=== PATIENT | female | born 2000 | race Two or more races ===

== ENCOUNTER 2024-05-16 09:58 | Emergency (ER) | payer OTHER ==
[~2024-05-16] VITALS: Ht 175.3 cm; Wt 65.8 kg
[2024-05-16] MEDS ORDERED: IBUPROFEN 800 MG TABLET ONE (10:57)
[2024-05-16] MEDS: IBUPROFEN 800 MG TABLET PO ONE (10:59)
[2024-05-16] MEDS ORDERED: IBUP-1957 PO (11:46)
[2024-05-16] MEDS ORDERED: HYDR-3972 PO (11:46)
[2024-05-16 11:51] VITALS: BP 124/63; TEMP 97.8; O2SAT 99
== END 2024-05-16 11:52 | disposition home or self-care (01) ==
LOC: ER 09:58
DX: S70.12XA Contusion of left thigh, initial encounter (principal); M12.812 Other specific arthropathies, not elsewhere classified, left shoulder; M25.512 Pain in left shoulder; M25.522 Pain in left elbow; M79.659 Pain in unspecified thigh; W01.0XXA Fall on same level from slipping, tripping and stumbling without subsequent striking against object, initial encounter; Y93.89 Activity, other specified; Y92.89 Other specified places as the place of occurrence of the external cause; Y99.8 Other external cause status
CPT/HCPCS: 73020; 73070; A4606; A4663

== ENCOUNTER 2025-03-16 17:37 | Emergency (ER) | payer MEDICARE, OTHER ==
[~2025-03-16] VITALS: Ht 175.3 cm; Wt 66.2 kg
[~2025-03-16 17:37] MED LIST: HYDR-3972 PO; IBUP-1957 PO
[2025-03-16 17:41] VITALS: BP 114/66
[2025-03-16] MEDS: IV NORMAL SALINE 500 ML IV ONE (18:58)
[2025-03-16] MEDS: ONDANSETRON 4 MG/2 ML VIAL IV ONE (18:58)
[2025-03-16 19:10] LABS: CREATININE 0.6 mg/dL (0.6-1.3); PLATELET COUNT (AUTO) 251 K/uL (179-408); RED BLOOD CELL COUNT(AUTO) 4.59 MIL/uL (3.63-4.92); RED CELL DISTRIBUTION WIDTH 16.0 % (12.3-17.7); SODIUM SERUM 141.0 mmol/L (136-145); UREA NITROGEN, BLOOD 15.0 mg/dL (7-18); WHITE BLOOD COUNT (AUTO) 4.7 K/uL (3.8-11.8)
[2025-03-16 19:16] LABS: ASPARTATE AMINOTRANSFERASE 21.0 U/L (15-37); TOTAL PROTEIN, SERUM 8.2 g/dL (6.4-8.2)
[2025-03-16 19:36] LABS: *BILIRUBIN,URIN NEGATIVE (NEGATIVE); *BLOOD, URINE NEGATIVE (NEGATIVE); *COLOR,URINE YELLOW (YELLOW); *KETONES,URINE NEGATIVE (NEGATIVE); *PROTEIN,URINE NEGATIVE (NEGATIVE); *UROBILINOGEN,URINE 0.2 E.U./dl (NORMAL); LEUKOCYTE ESTERASE ,URINE NEGATIVE (NEGATIVE); NITRITE, URINE NEGATIVE (NEGATIVE); UGLUCOSE NEGATIVE (NEGATIVE)
[2025-03-16 19:37] LABS: *CLARITY,URINE HAZY (CLEAR)
[2025-03-16 19:42] LABS: *URINE HCG, QUAL NEGATIVE (NEGATIVE)
[2025-03-16 19:46] LABS: SQUAMOUS EPITHELIAL CELL,UR FEW /HPF (NONE SEEN); URINE AMORPHOUS PHOSPHATES MODERATE /HPF
[2025-03-16 20:02] VITALS: BP 114/66; O2SAT 99
== END 2025-03-16 20:03 | disposition home or self-care (01) ==
LOC: ER 17:39
DX: N93.9 Abnormal uterine and vaginal bleeding, unspecified (principal); N93.8 Other specified abnormal uterine and vaginal bleeding; N92.0 Excessive and frequent menstruation with regular cycle; Z30.430 Encounter for insertion of intrauterine contraceptive device; Z86.018 Personal history of other benign neoplasm; R10.20 Pelvic and perineal pain unspecified side
CPT/HCPCS: 36415; 84703; 85025; 85730; A4606; A4663; J2405; J7040